=== PATIENT | female | born 1975 | race Caucasian/White ===

== ENCOUNTER → 2019-09-14 13:13 | Outpatient (CLI) | payer OTHER, SELFPAY ==
--- NOTE | ~2019-09-14 | US_ITS ---
EXAMINATION: US transvaginal DATE: 09/14/2019 14:05 INDICATION: Menorrhagia TECHNIQUE: Multiple endovaginal sonographic images of the pelvis were obtained. COMPARISON: None. FINDINGS: The uterus measures 6.3 x 3.7 x 5 cm. The endometrial complex measures 6 mm. The right ovar y measures 2.5 x 2.4 x 2.7 cm. The left ovary measures 2.1 x 1.7 x 2.2 cm. There is normal vascular f low in the ovaries. There is no free fluid in the pelvis. IMPRESSION: 1. No sonographic correlate for the patient's symptoms. Reviewed, dictated and finalized at location B.
== END ==
PROVIDERS: PCP Internal Medicine; Visit Provider Obstetrics & Gynecology
DX: N92.0 Excessive and frequent menstruation with regular cycle (principal)
CPT/HCPCS: 76830

== ENCOUNTER 2019-11-17 14:01 | Outpatient (CLI) | payer OTHER, SELFPAY ==
[2019-11-17 14:19] LABS: Hematocrit 41.7 % (37.0-47.0); Hemoglobin 14.2 g/dL (12.0-15.0)
== END 2019-11-17 14:02 | disposition home or self-care (01) ==
PROVIDERS: Anesthesiology; PCP Internal Medicine; Visit Provider Obstetrics & Gynecology
DX: N93.9 Abnormal uterine and vaginal bleeding, unspecified (principal)
CPT/HCPCS: 36415; 85014; 85018; 86850; 86900; 86901

== ENCOUNTER 2019-11-18 02:27 | Outpatient (CLI) | payer OTHER, SELFPAY ==
[2019-11-18 18:24] LABS: SARS-CoV-2 RNA PCR Negative
== END 2019-11-18 02:28 | disposition home or self-care (01) ==
LOC: ANHCOVIDDT 02:27
PROVIDERS: PCP Internal Medicine; Visit Provider Obstetrics & Gynecology
DX: Z01.812 Encounter for preprocedural laboratory examination (principal); Z20.828 Contact with and (suspected) exposure to other viral communicable diseases
CPT/HCPCS: 87635; C9803; U0003

== ENCOUNTER 2019-11-20 00:13 | Day surgery (SDC) | payer OTHER, SELFPAY ==
[2019-11-09 09:09] VITALS: BMI 27.3
[2019-11-20] VITALS (13 sets, daily range): BP systolic 93–123; BP diastolic 59–83; PULSE 51–91; RESP 10–20; TEMP 36.2–36.7; O2SAT 98–100
--- NOTE | 2019-11-20 09:47 | PM.IMHP ---
H&P: HPI History of Present Illness Date/Time: 11/20/19 09:47 Chief complaint: abn uterine bleeding Narrative: Flor Yost is a 44 year old female A1 with abnormal uterine bleeding.s/p mirena with out success. desires hysterectomy. Review of Systems Gastrointestinal: Gastrointestinal: Reports heartburn PMFSH Past Medical History Medical History (Updated 11/20/19 @ 09:54 by Anthony Mcgowan MD) Abnormal uterine bleeding (AUB) Anxiety History of hysteroscopy Surgical History Surgical History (Updated 11/20/19 @ 09:52 by Anthony Mcgowan MD) Hx of tonsillectomy Social History Social History Years smoked: 27 Smoking status: Current some day smoker Tobacco type: cigarettes Additional smoking assessment comments: STATES SMOKES ON SOCIAL OCCASIONS ONLY- Spiritual care concerns: No Meds Home Medications and Allergies Home Medications Medication Instructions Recorded Confirmed Type phentermine 37.5 mg PO DAILY 11/09/19 11/09/19 History Allergies Allergy/AdvReac Type Severity Reaction Status Date / Time Careless [place] Allergy Unknown POISON EMILY Uncoded 11/09/19 09:20 Exam Const: General: no acute distress Resp: Effort & Inspection: normal respiratory effort Auscultation: clear to auscultation bilaterally Cardio: Rate: regular rate Rhythm: regular rhythm GI: GI Palp: Yes Soft to palpation : External Female Exam: normal external appearance Assessment and Plan Assessment and plan (1) Anxiety: Code(s): F41.9 - Anxiety disorder, unspecified Status: Acute (2) Hx of tonsillectomy: Code(s): Z90.89 - Acquired absence of other organs Status: Acute (3) Abnormal uterine bleeding (AUB): Code(s): N93.9 - Abnormal uterine and vaginal bleeding, unspecified Status: Acute Assessment and Plan: Scheduled for LAVH-risk and benefits reviewed with patient in detail.
[2019-11-20] MEDS: LACTATED RINGERS 1,000 ML 30 ML IV CONT ×3 (10:15→14:55)
[2019-11-20] MEDS: ACETAMINOPHEN 500 MG TABLET 1000 MG PO (10:17)
[2019-11-20] MEDS: KETOROLAC 15 MG/ML VIAL (*BKC) IV PUSH (10:17)
--- NOTE | 2019-11-20 10:57 | WPDANESEPPF ---
Anes - Initial Pre Proc Eval Procedure: Operation Date: 11/20/19 12:00 Proposed Procedures p Laparoscopic Assisted Vaginal Hysterectomy - Anthony Mcgowan MD Date/Time: 11/20/19 10:57 Surgeon: Anthony Mcgowan MD Pre Op Diagnosis: abn uterine bleeding Patient Data Age: 44 Gender: F Height: 5 ft Weight: 72.3 kg Last Vital Signs Temp 36.4 C L 11/20/19 09:49 Pulse 91 11/20/19 09:49 Resp 20 11/20/19 09:49 BP 120/83 11/20/19 09:49 Pulse Ox 98 11/20/19 09:49 Allergies Allergy/AdvReac Type Severity Reaction Status Date / Time poison minerva extract Allergy Mild Rash Verified 11/20/19 10:52 Home Medications Medication Instructions Recorded Confirmed Type phentermine 37.5 mg PO DAILY 11/09/19 11/20/19 History Patient hx anesthesia problems: none Family hx anesthesia problems: none [facility] Past Medical History Medical History Abnormal uterine bleeding (AUB) Anxiety History of hysteroscopy Surgical History Surgical History (Updated 11/20/19 @ 09:52 by Anthony Mcgowan MD) Hx of tonsillectomy Social History Social History Years smoked: 27 Smoking status: Current some day smoker Tobacco type: cigarettes Additional smoking assessment comments: STATES SMOKES ON SOCIAL OCCASIONS ONLY- Spiritual care concerns: No Anes - Eval Final PreProcedure Day of Procedure 11/20/19 10:57 Patient weight: obese Heart: regular rate and rhythm Lungs: clear to auscultation Airway: Mallampati scale class II Neurological: alert and oriented Last oral intake: >/= 8 hours ASA classification: II Emergent: no Anesthetic plan: proceed Anesthesia type and monitoring: general ETT and standard monitoring Informed Consent: The patient's anesthetic plan and its attendant risks and benefits were discussed with the patient/family/POA. Questions were solicited and answers provided to the satisfaction of the patient/family/POA.
--- NOTE | 2019-11-20 11:31 | WPDHPUPDATE1 ---
History and Physical Update Update Date/Time: 11/20/19 11:31 History and Physical has been reviewed, including an updated exam of the patient. There are NO changes in the patient's condition. Risks, benefits, and alternatives have been discussed and questions answered. Patient agrees to proceed with procedure.
[2019-11-20] MEDS: ceFAZolin 2 GM/D5W 50 ML 2 GM/50 ML BAG IVPB (12:27)
[2019-11-20] MEDS: LIDO 1%/EPINEPHRINE 1:100,000 20 ML VIAL INFILTRATE (13:17)
[2019-11-20] MEDS: fentaNYL CITRATE INJ (*CRX) 100 MCG/2 ML VIAL 25 MCG IV PUSH ×4 (15:04→15:21)
--- NOTE | 2019-11-20 15:27 | SUR.PHASEI ---
[id number] sbar faxed floor notified
[2019-11-20] MEDS: MORPHINE SULFATE (*CRX) 4 MG/ML INJ IV PUSH (16:24)
[2019-11-20] MEDS: DEXTROSE 5%/LACTATED RINGERS 1,000 ML 125 ML IV CONT (16:24)
--- NOTE | 2019-11-20 17:13 | PC.NURSE ---
This patient, Flor Yost, was received from PACU on 11/20/19 at 1555. Patient/family oriented to unit policies and routines
--- NOTE | 2019-11-20 18:48 | PC.NURSE ---
Pt. IV infiltrated. Dr. Orellana notified and states pt needs new IV started. Pt. refuses to have one restarted. aware.
[2019-11-20] MEDS: HYDROcodone/acetaminophen (*CRX) 5-325 MG TABLET 1 TAB PO ×2 (18:58→21:46)
--- NOTE | 2019-11-20 21:00 | PC.NURSE ---
Patient refused her Senokot and her Climara patch, she would like to discuss with the MD regarding the Climara patch before she starts it. Advised her the MD would see her in the morning before she is discharged.
[2019-11-20] MEDS: IBUPROFEN 600 MG TABLET PO (21:46)
[2019-11-21] VITALS: BP 90/53; PULSE 68; RESP 16; TEMP 36.6; O2SAT 100
[2019-11-21] MEDS: HYDROcodone/acetaminophen (*CRX) 5-325 MG TABLET 1 TAB PO ×3 (01:27→09:58)
[2019-11-21] MEDS: IBUPROFEN 600 MG TABLET PO (04:40)
[2019-11-21 04:45] VITALS: BP 104/62; PULSE 62; RESP 18; TEMP 36.6; O2SAT 100
--- NOTE | 2019-11-21 05:30 | PC.NURSE ---
Patient refused her morning lab draw. She would like to talk with the MD because she feels the labs are not necessary.
[2019-11-21 07:30] VITALS: BP 86/57; PULSE 78; RESP 14; TEMP 36.7
[2019-11-21] MEDS: SENNA/DOCUSATE SODIUM TABLET 2 TAB PO (09:59)
--- NOTE | 2019-11-21 10:23 | PM.GYNPNOP ---
VOCATIONAL TECHNICAL EDUCATION DIRECTOR - A/P Assessment and plan (1) Abnormal uterine bleeding (AUB): Code(s): N93.9 - Abnormal uterine and vaginal bleeding, unspecified Status: Acute Assessment and Plan: s/p LAVH will d/c with prn pain meds. Patient to follow up in 1 week. Postoperative Procedures: Procedures Operation Date: 11/20/19 12:00 Actual Procedures Side Surgeon p Laparoscopic Assisted Vaginal Hysterectomy Not Applicable Anthony Mcgowan MD Time Spent With Patient Time: Total time spent is greater than 50% in coordination of care (as documented) at patient's floor/unit and/or counseling patient: Time with patient: less than 15 minutes VOCATIONAL TECHNICAL EDUCATION DIRECTOR- PN:Subj Post-Op Subjective Date/time seen: 11/21/19 10:23 S: patient reports doing well having some shoulder pain. Ambulating well and tolerating pain medications. Doing well with foods. denies nausea and minimal bleeding. Review of Systems Review of Systems: All systems reviewed & are unremarkable except as noted in HPI and below Exam GI: Other: incisions clean and dry abdomen soft and appropriately tender. VOCATIONAL TECHNICAL EDUCATION DIRECTOR - PN: Obj Data Vital Signs Vital Signs: Vital Signs - 24 hr 11/20/19 14:30 11/20/19 14:45 11/20/19 15:00 Temperature 36.2 C L Pulse Rate 85 61 57 L Respiratory Rate 10 L 10 L 10 L Blood Pressure 117/78 123/80 113/78 Pulse Oximetry 100 100 100 11/20/19 15:14 11/20/19 15:30 11/20/19 16:00 Temperature 36.7 C Pulse Rate 57 L 61 51 L Respiratory Rate 10 L 12 16 Blood Pressure 116/74 116/74 111/69 Pulse Oximetry 100 100 98 11/20/19 16:15 11/20/19 16:30 11/20/19 16:45 Temperature Pulse Rate 58 L 68 64 Respiratory Rate 18 18 16 Blood Pressure 101/72 110/70 123/74 Pulse Oximetry 99 98 100 11/20/19 17:00 11/20/19 17:30 11/20/19 19:00 Temperature 36.4 C Pulse Rate 67 63 65 Respiratory Rate 18 18 18 Blood Pressure 104/68 101/63 93/59 L Pulse Oximetry 100 100 100 11/21/19 00:00 11/21/19 04:45 11/21/19 07:30 Temperature 36.6 C 36.6 C 36.7 C Pulse Rate 68 62 78 Respiratory Rate 16 18 14 Blood Pressure 90/53 L 104/62 86/57 L Pulse Oximetry 100 100 Intake/Output Intake/Output: Intake & Output 11/18/19 11/19/19 11/20/19 11/21/19 23:59 23:59 23:59 23:59 Intake Total 2290 1000 Output Total 1070 1825 Balance 1220 -825 Meds/Results Medications: Active Medications Generic Name Dose Route Start Last Admin Trade Name Freq PRN Reason Stop Dose Admin Hydrocodone Bitart/Acetaminophen 1 tab 11/20/19 14:16 11/21/19 09:58 [place] 5-325 Mg PO 1 tab Q3H PRN Administration Pain Rated 5 or Less Hydrocodone Bitart/Acetaminophen 1 tab 11/20/19 14:16 [place] 10-325 Mg PO Q3H PRN Pain Rated 6 or Greater Estradiol 0.05 mg 11/20/19 09:00 Climara 7 Day TRANSDERM WEEKLY [facility] Ibuprofen 600 mg 11/20/19 14:16 11/21/19 04:40 Motrin PO 600 mg Q6H PRN Administration Cramping Senna/Docusate Sodium 2 tab 11/20/19 21:00 11/21/19 09:59 Senokot S Tablet PO 1 tab HS [facility] Administration Simethicone 80 mg 11/20/19 14:16 Mylicon PO Q2H PRN Gas
[2019-11-21 10:43] LABS: Basophils Percent Auto 0.1 % (0.2-1.2); Eosinophils Percent Auto 0.1 % (0-4.4); Hematocrit 32.4 % (37.0-47.0); Hemoglobin 11.1 g/dL (12.0-15.0); Immature Granulocyte Absolute 0.06 K/mm3 (0.00-0.031); Immature Granulocyte Percent A 0.4 % (0-0.5); Lymphocytes Absolute Auto 4.32 K/mm3 (0.9-3.2); Lymphocytes Percent Auto 28.1 % (18.3-44.2); Mean Corpuscular HGB Conc 34.3 g/dl (32-36); Mean Corpuscular Hemoglobin 30.8 pg (26-34); Mean Platelet Volume 10.5 fl (7.4-10.4); Monocytes Absolute Auto 1.1 K/mm3 (0.1-0.6); Neutrophils Absolute Auto 9.9 K/mm3 (1.3-6.7); Neutrophils Percent Auto 64.3 % (45.5-73.1); Platelet Count Result 269 k/mm3 (150-375); Red Cell Distribution Width 12.2 % (11.5-14.5); White Blood Count 15.4 K/mm3 (4.5-10.0)
[2019-11-21 10:57] LABS: Anion Gap 6 mmol/L (8-16); Blood Urea Nitrogen 9 mg/dL (7-17); Calcium 8.2 mg/dL (8.4-10.2); Carbon Dioxide 26 mmol/L (22-30); Chloride 106 mmol/L (98-107); Estimated CRCL calculation 63 ml/min; Estimated Glomerular Filt Rate > 60; Glucose 103 mg/dL (65-105); Potassium 3.2 mmol/L (3.4-5.0); Sodium 138 mmol/L (137-145)
--- NOTE | 2019-11-21 11:37 | PM.PROC ---
Procedure Note - Detailed Date of procedure: 11/21/19 Pre-op diagnosis: abn uterine bleeding Post-op diagnosis: same Procedure performed: laparoscopic-assisted vaginal hysterectomy Description of procedure: patient was taken to the operating room with IV running prepped and draped in a normal sterile fashion after given general anesthesia she was placed in the dorsal lithotomy position. The abdomen perineum and vagina were prepped and draped in usual sterile fashion a Frye catheter into the bladder and attached to a straight drainage after initial preparation. a bivalve speculum was placed into the vagina anterior lip of the cervix was grasped with a single-tooth tenaculum. A uterine manipulator was placed into the cervix. [place] speculum was removed. Attention was then turned to the abdomen. A 5mm incision was made with the scalpel at the infraumbilical fold. the Veress needle was gently advanced taking care to feel for typical sensation are penetration of the peritoneum. With CO2 infiltration and an opening pressure of less than 6mm is noted and a peritoneal a 15mm was created. A 5mm trocar was then passed through the same incision and the laparoscopic was then inserted through the trocar sleeve. Visual parent visualization of the peritoneal cavity was then obtained and showed normal cavity and under direct observation 5mm ports were placed in the right and left sides. Beginning on the right side and distally along the length of the fallopian tube to the mesosalpinx and lifting the tube the mesosalpinx was then sequentially clamped ligated and cut using the Harmonic scalpel alongside the length of the tubing towards the cornu. At the level of the cornu was reached attention was then turned to the other side same process was repeated on the left initially clamping widening cutting the mesosalpinx being sure to not injure the adjacent ovarian tissue or the surrounding structures. The round ligament was then ligated and cut following this anterior leaf of the broad ligament was then taken down on both sides dissected down towards the peritoneal reflection in the base of the bladder and adjacent to the cervix. The same process was then repeated on the left side an had been appropriately skeletonized. To ensure excellent hemostasis prior to the transection and ligation of the pedicles. The uterine vessels and cardinal ligament was then ligated and divided on each side using the Harmonic scalpel. Attention was then turned to the vaginal aspect of the surgery the Frye catheter was removed weighted speculum was placed in the posterior aspect of the vagina and the vaginal manipulator was removed. The tenaculum repositioned anteriorly and posteriorly a circumferential incision was made after injecting with 1% lidocaine with and pain and this incision was made at the cervical vaginal reflection using a scalpel. This was undermined 1st anteriorly and colpotomy made without difficulty this was then repeated. Jacque retractors were then placed into each of these incisions beginning 1st on the patient's left uterosacral and cardinal ligaments were clamped divided and suture ligated 2 bites were required breech from the previous dissection margin of the left the same process was then repeated on the patient's right side and the specimen was completely free once the sutures had been placed and the pedicle secured the uterus along with both tubes were removed transvaginally without difficulty all pedicles were inspected and hemostasis was confirmed the vaginal vault was then oversewn with a running locking suture of 0 Vicryl securing 1st the posterior edge of the cuff followed by the anterior. The vagina was packed. And using a laparoscopic, the abdomen was carefully reinspected insuring complete hemostasis. abdomen was inspected the ports were then removed under direct visualization and the incisions were closed with 4 Vicryl suture. Estimated blood loss was approximatel
== END 2019-11-21 11:05 | disposition home or self-care (01) ==
LOC: ANHSURGERY 09:38 → ANHOB2 16:18
PROVIDERS: PCP Internal Medicine; Visit Provider Obstetrics & Gynecology
PROC: 0UT9FZZ Resection of Uterus, Via Natural or Artificial Opening With Percutaneous Endoscopic Assistance (ICD-10-PCS; CPT 58552; principal; 2019-11-20 12:00)
DX: N93.9 Abnormal uterine and vaginal bleeding, unspecified (principal); F17.210 Nicotine dependence, cigarettes, uncomplicated; E66.9 Obesity, unspecified; Z68.31 Body mass index [BMI] 31.0-31.9, adult
CPT/HCPCS: 58552; S2900; 36415; 80048; 85025; 88307; 99199; A9270; J0330; J0690; J1100; J1885; J2250; J2270; J2405; J2704; J2710; J3010; J7120; J7121

== ENCOUNTER 2020-06-09 10:25 | Emergency (ER) | payer OTHER, SELFPAY ==
[2020-06-09 10:46] VITALS: BP 103/67; PULSE 97; RESP 14; TEMP 36.9; O2SAT 99
--- NOTE | 2020-06-09 11:23 | ED.URI ---
HPI - URI/Sore Throat General Chief Complaint: Upper Respiratory Infection Stated Complaint: sore throat headache Source: patient Mode of arrival: ambulatory Limitations: no limitations History of Present Illness HPI Narrative: Patient is a 44-year-old female who presents complaining of sore throat and headache x1 day. She also reports left ear pressure/pain. She denies known exposure to Covid. Patient reports Covid vaccine x2, with last vaccine over 2 weeks prior. She denies significant medical history. She reports taking [id number] medication with limited relief. Related Data Allergies Allergy/AdvReac Type Severity Reaction Status Date / Time poison minerva extract Allergy Mild Rash Verified 06/09/20 10:54 Review of Systems Review of Systems: Narrative: CONSTITUTIONAL: Denies fever, chills, or sweats. EYES: Denies visual changes, redness, or discharge. ENT: Reports sore throat and left otalgia CARDIOVASCULAR: Denies chest pain, palpitations, or edema. RESPIRATORY: Denies cough or dyspnea. GASTROINTESTINAL: Denies abdominal pain, nausea, vomiting, or diarrhea. GENITOURINARY: Denies dysuria or hematuria. SKIN: Denies rash or itching. MUSCULOSKELETAL: Denies back pain, joint pain, or myalgia. NEUROLOGIC: Reports headache, denies numbness, dizziness, or weakness. PSYCHIATRIC: Denies anxiety or depression. [facility] Past Medical History Medical History (Updated 06/09/20 @ 11:28 by ELIAS Walter) Abnormal uterine bleeding (AUB) Anxiety History of hysteroscopy Surgical History Surgical History Hx of tonsillectomy Social History Social History Years smoked: 27 Smoking status: Current some day smoker Tobacco type: cigarettes Additional smoking assessment comments: STATES SMOKES ON SOCIAL OCCASIONS ONLY- Spiritual care concerns: No Comments At the time of signature, I have reviewed and agree with nursing past medical, surgical, social, and family history unless otherwise noted. Please see nursing chart for further information. There is no relevant family history pertinent to the presenting complaint. Exam Narrative: Exam Narrative: GENERAL: Well-appearing, well-nourished, and in no acute distress. HEAD: Normocephalic, atraumatic. EYES:No redness or drainage. ENT: Mucous membranes pink and moist. Nares clear. No rhinorrhea. TMs normal bilaterally. Throat moderate erythema. Uvula midline. NECK: AROM. Supple. No lymphadenopathy. CHEST: No respiratory distress. Clear to auscultation. HEART: Regular rate and rhythm. EXTREMITIES: Normal range of motion. No edema. SKIN: Warm, dry, no rash. NEURO: No focal deficits. Alert and oriented x3. Gait steady. PSYCH: Normal affect. No signs of depression or anxiety. Course Vital Signs Vital signs: Vital Signs Temperature 36.9 C 06/09/20 10:46 Pulse Rate 97 06/09/20 10:46 Respiratory Rate 14 06/09/20 10:46 Blood Pressure 103/67 06/09/20 10:46 Pulse Oximetry 99 06/09/20 10:46 Temperature 36.9 C 06/09/20 10:46 Pulse Rate 97 06/09/20 10:46 Respiratory Rate 14 06/09/20 10:46 Blood Pressure 103/67 06/09/20 10:46 Pulse Oximetry 99 06/09/20 10:46 Reviewed MDM - URI/Sore Throat MDM Narrative Medical decision making narrative: Patient most likely has a viral pharyngitis. Discussed with patient symptomatic treatment. Patient declines Covid testing. Patient is stable for discharge to home with outpatient follow-up as needed. Differential Diagnosis Differential diagnosis: Likely upper respiratory infection, sinusitis, viral infection and pharyngitis Critical Care Time Critical Care Time Critical Care Time: No Discharge Plan Discharge Clinical Impression: Pharyngitis Patient Disposition: Home, Self-Care Condition: Stable Instructions: Pharyngitis (ED), Allergies (ED) Additional Instructions:
== END 2020-06-09 11:33 | disposition home or self-care (01) ==
PROVIDERS: Emergency Provider Nurse Practitioner; PCP Internal Medicine
DX: J02.9 Acute pharyngitis, unspecified (principal); F17.210 Nicotine dependence, cigarettes, uncomplicated; F41.9 Anxiety disorder, unspecified
CPT/HCPCS: 87081; 87880; 99213; G0463

== ENCOUNTER 2021-08-30 07:57 | Outpatient (CLI) | payer OTHER, SELFPAY ==
--- NOTE | ~2021-08-30 | MM_ITS ---
EXAMINATION: MM screening denise BI w prashanth HISTORY: Baseline screening mammogram TECHNIQUE: Craniocaudal and mediolateral oblique 3-D tomosynthesis images were obtained and synthetic 2-D images were generated. CAD analysis was submitted and interpreted. COMPARISON: None, baseline BREAST PARENCHYMAL COMPOSITION: There are scattered areas of fibroglandular density. FINDINGS: RIGHT BREAST: There is no suspicious mass, calcification, or architectural distortion to suggest alan gnancy. LEFT BREAST: There is focal asymmetry in the middle/posterior third of the upper outer quadrant of th e breast. IMPRESSION: 1. Left breast focal asymmetry. 2. Additional mammographic views and possible breast ultrasound are recommended. BI-RADS Category 0: Incomplete: Needs additional imaging evaluation. Reviewed, dictated and finalized at location A. IMPRESSION: 1. Left breast focal asymmetry. 2. Additional mammographic views and possible breast ultrasound are recommended . BI-RADS Category 0: Incomplete: Needs additional imaging evaluation.
== END 2021-08-30 07:58 | disposition home or self-care (01) ==
LOC: ANHIMG 07:58
PROVIDERS: PCP Internal Medicine; Visit Provider Nurse Practitioner
DX: Z12.31 Encounter for screening mammogram for malignant neoplasm of breast (principal); R92.8 Other abnormal and inconclusive findings on diagnostic imaging of breast
CPT/HCPCS: 77063; 77067

== ENCOUNTER 2021-09-13 12:00 | Outpatient (CLI) | payer OTHER, SELFPAY ==
--- NOTE | ~2021-09-13 | MMUS_ITS ---
EXAMINATION: MM diagnostic mammo unilat LT, US breast LT limited HISTORY: Focal asymmetry reported in the middle/posterior third of upper outer quadrant of left brethalia t on 08/30/2021 screening mammogram TECHNIQUE: ML view of left breast and spot MLO and CC views.. CAD analysis was submitted and interpre jennie. High resolution upper outer quadrant left breast ultrasound was performed. COMPARISON: 08/30/2021 bilateral screening mammogram FINDINGS: MAMMOGRAPHIC FINDINGS: No reproducible mass is evident on orthogonal views. There is asymmetry compared to the right. Upper outer quadrant left breast ultrasound examination was performed. ULTRASOUND: No suspicious mass or shadowing, cyst or other significant sonographic finding is detected in the upp er outer quadrant of left breast IMPRESSION: 1. No mammographic evidence of malignancy; benign fibroglandular asymmetry 2. Routine annual mammographic screening is recommended BI-RADS Category 2: Benign finding(s). Reviewed, dictated and finalized at location A. IMPRESSION: 1. No mammographic evidence of malignancy; benign fibroglandular asymmetry 2. Routine annual mammographic screening is recommended BI-RADS Category 2: Benign finding(s).
== END 2021-09-13 12:01 | disposition home or self-care (01) ==
LOC: ANHIMG 12:02
PROVIDERS: PCP Internal Medicine; Visit Provider Obstetrics & Gynecology Gynecology
DX: R92.8 Other abnormal and inconclusive findings on diagnostic imaging of breast (principal)
CPT/HCPCS: 76642; 77065